=== PATIENT | female | born 1995 | race Caucasian/White ===

== ENCOUNTER 2019-12-29 12:12 | Emergency (ER) | payer MEDICAID ==
[~2019-12-29] VITALS: Ht 157.5 cm; Wt 52.2 kg
[2019-12-29 12:22] VITALS: BP 109/38
[2019-12-29] MEDS ORDERED: ONDANSETRON 4 MG ODT PO ONE (12:40)
[2019-12-29] MEDS ORDERED: LACTATED RINGERS 1,000 ML IV ONE (13:00)
[2019-12-29] MEDS ORDERED: ONDANSETRON 4 MG/2 ML VIAL IVP ONE (13:00)
[2019-12-29 14:04] VITALS: BP 111/61
== END 2019-12-29 14:03 | disposition home or self-care (01) ==
LOC: MED 12:12
DX: A08.4 Viral intestinal infection, unspecified (principal); R11.2 Nausea with vomiting, unspecified
CPT/HCPCS: 81002; 81025; 96361; 96374; 99283; J2405; J7120; Q0162